=== PATIENT | female | born 1955 | race Caucasian/White ===

== ENCOUNTER → 2020-06-12 12:17 | Outpatient (CLI) | payer MEDICARE, SELFPAY ==
--- NOTE | 2020-06-12 12:22 | DI.MG.S_ITS ---
BILATERAL DIGITAL SCREENING MAMMOGRAM 3D/2D WITH CAD: 06/12/2020 CLINICAL: Routine screening. Comparison is made to exams dated: 04/25/2002 mammogram and 10/28/1999 mammogram - [facility]. The tissue of both breasts is predominantly fatty. Current study was also evaluated with a Computer Aided Detection (CAD) system. No significant masses, calcifications, or other findings are seen in either breast. There has been no significant interval change. IMPRESSION: NEGATIVE There is no mammographic evidence of malignancy. A 1 year screening mammogram is recommended. This exam was interpreted at Station ID: [id number]. NOTE: For mammograms, a report in lay terms will be sent to the patient. Approximately 15% of breast malignancies will not be visualized mammographically. In the management of a palpable breast mass, a negative mammogram must not discourage biopsy of a clinically suspicious lesion. Electronically Signed By: Fransisco moreno/emmy:06/12/2020 13:48:09 letter sent: Normal Exam ACR BI-RADS Category 1: Negative 3341F
[2020-06-12 12:55] LABS: Add Manual Diff / Slide Review NO; Basophils Absolute Auto 0 /uL (0-100); Basophils Percent Auto 0.4 % (0-2); Eosinophils Absolute Auto 400 /uL (0-450); Eosinophils Percent Auto 5.1 % (2-4); Hematocrit 46.1 % (36-46); Hemoglobin 15.7 g/dL (12.0-16.0); Lymphocytes Absolute Auto 1700 /uL (1100-4500); Lymphocytes Percent Auto 24.3 % (25-40); Mean Corpuscular HGB Conc 34.2 % (30-36); Mean Corpuscular Hemoglobin 30.8 PG (26-34); Mean Corpuscular Volume 90.1 fL (80-100); Monocytes Absolute Auto 300 /uL (0-900); Monocytes Percent Auto 4.8 % (3-14); Neutrophils Absolute Auto 4700 /uL (1500-7000); Neutrophils Percent Auto 65.4 % (50-75); Platelet Count 187 X10^3/uL (150-400); Red Blood Cell Count 5.11 X10^6/uL (4.0-5.2); Red Cell Distribution Width 14.3 % (11.6-14.8); White Blood Cell Count 7.1 X10^3/uL (4.5-11.0)
[2020-06-12 13:42] LABS: Alanine Aminotransferase 72 IU/L (<35); Albumin 4.5 g/dL (3.5-5.0); Albumin Globulin Ratio 1.4 (1.0-2.8); Alkaline Phosphatase 130 U/L (38-126); Aspartate Aminotransferase 53 IU/L (14-36); BUN Creatinine Ratio 20.8 (6-22); Bilirubin Total 0.5 mg/dL (0.2-1.3); Blood Urea Nitrogen 15 mg/dL (7-17); Carbon Dioxide 27 mmol/L (22-32); Chloride 105 mmol/L (98-107); Cholesterol 304 mg/dL (140-199); Estimated Glomerular Filt Rate > 60.0 mL/min (>60); Globulin 3.3 g/dL (1.7-4.1); Glucose 132 mg/dL (80-110); HDL Cholesterol 59 mg/dL (40-60); HEMOLYSIS < 15 (0-50); LDL Cholesterol Calculated 205 mg/dL (<100); Potassium 4.4 mmol/L (3.4-5.1); Sodium 139 mmol/L (137-145); Total Protein 7.8 g/dL (6.3-8.2); Triglycerides 202 mg/dL (35-150)
[2020-06-12 13:54] LABS: Free T3, Triiodothyronine Free 3.51 pg/mL (2.77-5.27); Free T4, Direct Thyroxine 0.96 ng/dL (0.78-2.19)
[2020-06-12 14:07] LABS: Thyroid Stimulating Hormone 2.71 uIU/mL (0.47-4.68)
[2020-06-12 14:38] LABS: Creatinine Urine Random 58.3 mg/dL
[2020-06-12 14:42] LABS: Microalbumin Urine Random < 0.6 mg/dL (0-1.6)
[2020-06-12 14:53] LABS: Hemoglobin A1C% w Est Avg Glu 4.9 % (4.0-6.0)
[2020-06-16 09:44] LABS: Fecal Immunochemical Test Negative (Negative)
== END ==
PROVIDERS: PCP Nurse Practitioner; Referring Provider Nurse Practitioner; Visit Provider Nurse Practitioner
DX: Z12.31 Encounter for screening mammogram for malignant neoplasm of breast (principal); M85.852 Other specified disorders of bone density and structure, left thigh; Z78.0 Asymptomatic menopausal state; R53.83 Other fatigue; R03.0 Elevated blood-pressure reading, without diagnosis of hypertension; Z13.6 Encounter for screening for cardiovascular disorders; Z13.1 Encounter for screening for diabetes mellitus; Z12.11 Encounter for screening for malignant neoplasm of colon; Z82.62 Family history of osteoporosis
CPT/HCPCS: 36415; 77063; 77067; 77080; 80053; 80061; 82043; 82274; 82570; 83036; 84439; 84443; 84481; 85025

== ENCOUNTER → 2022-04-26 11:14 | Outpatient (CLI) | payer MEDICARE, SELFPAY ==
[2022-04-26 13:01] LABS: COVID19 -Nasal RAPID Negative (Negative)
== END ==
PROVIDERS: PCP Nurse Practitioner; Visit Provider Surgery
DX: Z01.812 Encounter for preprocedural laboratory examination (principal); Z20.822 Contact with and (suspected) exposure to COVID-19
CPT/HCPCS: 87635; C9803

== ENCOUNTER 2022-04-27 12:17 | Day surgery (SDC) | payer MEDICARE, SELFPAY ==
--- NOTE | 2022-04-27 | PATH_ITS ---
[facility] Accession Number: [id number] . 01 Material submitted: . colon - RANDOM COLON BIOPSIES . 01 Diagnosis: Random Colon, Biopsies: Mild active colitis with crypt architectural distortion; please see comment. Negative for granulomas, dysplasia or malignancy. MRV 04/29/2022 1326 Local . 01 Comment: The histologic findings would support a clinical impression of idiopathic inflammatory bowel disease, particularly if other etiologies such as infection or drug/toxin-induced injury are excluded. . 01 Electronically signed: . Yony Cherry MD, PhD, Pathologist NPI- [id number] . 01 Gross description: . RANDOM COLON BIOPSIES: Received in formalin are 3 fragment(s) of lambert, soft tissue measuring 0.2 x 0.2 x 0.2 cm to 0.5 x 0.3 x 0.3 cm submitted entirely in 1 cassette(s) /AMERICO 04/28/2022 1916 Local . 01 Pathologist provided ICD-10: R19.7, K52.9 . 01 CPT . 832776 Specimen Comment: A courtesy copy of this report has been sent to [phone] Performed at: 01 [facility] [address] [place] [address], [place], [place] [id number] MD Aba Dyson MD Phone: [phone]
[2022-04-27] MEDS: LACTATED RINGERS 1,000 ML 200 ML IV (13:09)
[2022-04-27 13:14] VITALS: BP 151/96; PULSE 102; RESP 20; TEMP 36.3; O2SAT 93; BMI 38.2
--- NOTE | 2022-04-27 14:07 | PM.HP.1 ---
History of Present Illness History of Present Illness Date Patient Seen: 04/27/22 Time Patient Seen: 14:07 Chief complaint: DX COLONOSCOPY Narrative: The patient presents for diagnostic colonoscopy secondary to bloody diarrhea. For the past several months having intermittent bloody diarrhea which she describes as clot containing.. No personal or family history of colon cancer. Had a previously normal colonoscopy she thinks between 5 and 10 years ago. No personal or first-degree family history of colon cancer. Patient History Medical History Allergies (~1954) Ankle pain (~1969) Asthma (~1954) Chicken pox (~1964) Elevated blood pressure reading Fatigue Measles (~1962) Mumps (~1960) Obesity, Class III, BMI 40-49.9 (morbid obesity) Osteoarthritis (~1989) Plantar warts Rubella (~1963) Screening for cardiovascular condition Screening for diabetes mellitus Viral wart on finger Surgical History Anesthesia History of section History of hip replacement (~2004) History of thumb surgery LAP-BAND surgery status (~2003) Family & Social History Family History Father History of heart disease Dissecting AAA (abdominal aortic aneurysm) Mother Diabetes mellitus Hypertension Stroke Brother History of heart disease History of heart attack Grandfather History of heart disease Grandmother Parkinson's disease Grandfather History of heart disease Grandmother Stroke Son Accident Social History: household members spouse Tobacco & Substance use: Smoking Status Never smoker alcohol intake current alcohol intake frequency a few times a month Substance Use Type does not use Meds Home Medications and Allergies Home Medications Medication Instructions Recorded Confirmed Type clobetasol 0.05 % topical ointment 1 applictn topical QAM AND QPM 14 04/23/20 04/27/22 Rx days #60 grams sodium,potassium,mag sulfates 17.5 See Rx Instructions PO .COMPLEX 04/23/22 04/27/22 Rx gram-3.13 gram-1.6 gram oral soln #354 mL (Suprep Bowel Prep Kit) Allergies Allergy/AdvReac Type Severity Reaction Status Date / Time SULFA (sulfonamide) Allergy Unknown RASH/H.A./D Uncoded 04/27/22 13:30 YSPNEA Sulfites Allergy Unknown MIGRAINES Uncoded 04/27/22 13:30 Exam Vital Signs (past 8 hours): - 04/27/22 13:14 Temperature 97.3 F L Pulse Rate 102 H Respiratory Rate 20 Blood Pressure 151/96 H Pulse Oximetry 93 Oxygen Delivery Method Room Air Oxygen Delivery Method Room Air Narrative Exam Narrative: General adult woman alert oriented no acute distress Abdomen soft nontender nondistended Assessment & Plan Assessment and plan (1) Bloody diarrhea: Status: Acute Assessment & Plan narrative: 66-year-old woman with intermittent bloody diarrhea here for diagnostic colonoscopy. Technical details were discussed. Risks, benefits, alternatives explained. Risks including but not limited to myocardial infarction, aspiration, bleeding, pain, missed lesion, incomplete examination, need for further radiographic studies, colonic perforation, and need for major abdominal surgery were discussed. All questions were answered to their satisfaction, and they are in agreement with this plan. Time Spent With Patient Critical Care time: I spent a total of [] minutes of critical care time on this patient's care today; this time is exclusive of procedural time.
--- NOTE | 2022-04-27 14:10 | PM.OP.COLON ---
Operative Date/Time/Diagnoses Date of procedure: 04/27/22 Time of procedure: 14:10 Pre-op diagnosis: Bloody diarrhea Post-op diagnosis: same Procedure & Clinicians Study performed: Colonoscopy Same procedure as scheduled: Yes Indications: Bloody diarrhea Surgeon: Niko Sanchez Procedure Notes Procedure in detail: The history and physical was performed/updated and the patient is ASA class is 3. The procedure was discussed in detail with the patient. Potential risks complications including infection, bleeding, missed diagnosis, perforation, need for surgery, and were explained. Their questions were answered and informed consent was obtained. Patient was brought to the procedure room and placed standard monitoring equipment. The patient's vital signs were monitored continuously throughout the entire procedure. Prior to starting time-out was performed. The patient was placed in the left lateral recumbent position. Procedural sedation was administered by anesthesia. Examination began with a thorough inspection of the perianal area there was no evidence of fissures, fistulae, external hemorrhoids or cutaneous malignancy. The colonoscopy scope was then placed into the anal canal and was advanced to the cecum, which was identified by the ileocecal valve, the appendiceal orifice and the confluence of the taenia. The scope was then slowly withdrawn examining colon thoroughly in all directions, irrigating it of any residual stool. FINDINGS 1. No masses or polyps. 2. Noncontinuous patches of colitis with sloughing mucosa. More prominent in distal colon and proximal. Multiple random biopsies of colon were taken. The patient tolerated the procedure well. They will be discharged once criteria are met. The prep was of good/excellent quality. The withdrawl time was 7 minutes. Findings: colitis Specimen(s): other (Random colonic biopsies) Complications: none Impression: Colitis Post-procedure Recommendations: Will call with biopsy results Disposition: same day surgery
[2022-04-27 14:35] VITALS: BP 93/55; PULSE 66; RESP 13; TEMP 37.1; O2SAT 96
[2022-04-27 14:39] VITALS: BP 97/70; PULSE 69; RESP 13; O2SAT 98
[2022-04-27 14:44] VITALS: BP 136/79; PULSE 70; RESP 18; O2SAT 99
[2022-04-27 14:49] VITALS: BP 131/81; PULSE 72; RESP 17; O2SAT 98
[2022-04-27 14:50] VITALS: BP 141/88; PULSE 70; RESP 12; TEMP 36.3; O2SAT 98
== END 2022-04-27 15:14 | disposition home or self-care (01) ==
PROVIDERS: PCP Nurse Practitioner; Referring Provider Surgery; Visit Provider Surgery
PROC: 0DJD8ZZ Inspection of Lower Intestinal Tract, Via Natural or Artificial Opening Endoscopic (ICD-10-PCS; CPT 45378; principal; 2022-04-27 14:00)
DX: K52.9 Noninfective gastroenteritis and colitis, unspecified (principal)
CPT/HCPCS: 45380; J2704; J3010

== ENCOUNTER → 2022-05-24 12:56 | Outpatient (CLI) | payer MEDICARE, SELFPAY ==
[2022-05-24 13:31] LABS: Add Manual Diff / Slide Review NO; Basophils Absolute Auto 0 /uL (0-100); Basophils Percent Auto 0.7 % (0-2); Eosinophils Absolute Auto 300 /uL (0-450); Eosinophils Percent Auto 4.8 % (2-4); Hematocrit 45.5 % (36-46); Hemoglobin 15.8 g/dL (12.0-16.0); Lymphocytes Absolute Auto 1900 /uL (1100-4500); Mean Corpuscular HGB Conc 34.6 % (30-36); Mean Corpuscular Hemoglobin 30.6 PG (26-34); Mean Corpuscular Volume 88.4 fL (80-100); Monocytes Absolute Auto 400 /uL (0-900); Monocytes Percent Auto 6.5 % (3-14); Neutrophils Absolute Auto 3800 /uL (1500-7000); Platelet Count 194 X10^3/uL (150-400); Red Blood Cell Count 5.15 X10^6/uL (4.0-5.2); Red Cell Distribution Width 14.2 % (11.6-14.8); White Blood Cell Count 6.5 X10^3/uL (4.5-11.0)
[2022-05-24 14:40] LABS: Free T3, Triiodothyronine Free 2.94 pg/mL (2.77-5.27); Free T4, Direct Thyroxine 1.01 ng/dL (0.78-2.19)
[2022-05-24 16:13] LABS: Alanine Aminotransferase 17 IU/L (<35); Albumin 4.2 g/dL (3.5-5.0); Albumin Globulin Ratio 1.2 (1.0-2.8); Alkaline Phosphatase 88 U/L (38-126); Aspartate Aminotransferase 24 IU/L (14-36); BUN Creatinine Ratio 13.9 (6-22); Bilirubin Total 0.7 mg/dL (0.2-1.3); Blood Urea Nitrogen 11 mg/dL (7-17); Calcium 9.3 mg/dL (8.4-10.2); Carbon Dioxide 24 mmol/L (22-32); Chloride 105 mmol/L (98-107); Estimated Glomerular Filt Rate > 60 mL/min (>60); Globulin 3.6 g/dL (1.7-4.1); Glucose 93 mg/dL (80-110); HEMOLYSIS < 15 (0-50); Sodium 139 mmol/L (137-145); Total Protein 7.8 g/dL (6.3-8.2)
[2022-05-24 16:51] LABS: Hep C Virus Ab w/Reflex Quant NEGATIVE s/c (NEGATIVE)
[2022-05-25 02:42] LABS: Cholesterol 256 mg/dL (140-199); HDL Cholesterol 27 mg/dL (40-60); LDL Cholesterol Calculated 179 mg/dL (<100); Triglycerides 251 mg/dL (35-150)
== END ==
PROVIDERS: PCP Nurse Practitioner; Referring Provider Nurse Practitioner; Visit Provider Nurse Practitioner
DX: R19.7 Diarrhea, unspecified (principal); E78.5 Hyperlipidemia, unspecified; K51.90 Ulcerative colitis, unspecified, without complications; R53.83 Other fatigue; Z11.59 Encounter for screening for other viral diseases
CPT/HCPCS: 36415; 80053; 80061; 84439; 84443; 84481; 85025; 86803

== ENCOUNTER → 2024-05-11 | Outpatient (CLI) | payer MEDICARE, SELFPAY ==
--- NOTE | 2024-05-11 13:30 | DI.MG.S_ITS ---
BILATERAL DIGITAL DIAGNOSTIC MAMMOGRAM 3D/2D: 05/11/2024 CLINICAL: Left breast lump. Comparison is made to exam dated: 06/12/2020 mammogram - . The breasts are almost entirely fatty (category a/<25% glandular tissue). There are a few scattered, stable, lucent centered calcifications in both breasts. No significant masses, calcifications, or other findings are seen in either breast. Specifically, no finding to correspond to the patient's palpable abnormality. IMPRESSION: INCOMPLETE: NEED ADDITIONAL IMAGING EVALUATION Bilateral mammograms are stable. There is no abnormality seen in the left breast to correspond with the palpable abnormality at 2 o'clock in the anterior depth. Ultrasound is recommended for full evaluation of this area. This was performed immediately following this exam. Based on the Tyrer Cuzick model (a risk assessment model) the patient's lifetime risk is 3.2% and her 10 year risk is 1.9%. According to the ACR, ACS, and NCCN guidelines, an annual breast MRI exam along with mammogram is recommended if the patient's lifetime risk is 20% or greater. This exam was interpreted at Station ID: [id number]. NOTE: For mammograms, a report in lay terms will be sent to the patient. Approximately 15% of breast malignancies will not be visualized mammographically. In the management of a palpable breast mass, a negative mammogram must not discourage biopsy of a clinically suspicious lesion. Electronically Signed By: Sarah rousseau/:05/11/2024 14:18:03 letter sent: Additional Imaging Needed ACR BI-RADS Category 0: Incomplete: Need Additional Imaging Evaluation
--- NOTE | 2024-05-11 13:30 | DI.US.S_ITS ---
LIMITED ULTRASOUND OF LEFT BREAST: 05/11/2024 CLINICAL: Palpable left breast lump. Comparison is made to exams dated: 05/11/2024 mammogram, 06/12/2020 mammogram, 04/25/2002 mammogram, and 10/28/1999 mammogram - [facility]. Real-time ultrasound of the left breast 1 o'clock region was performed. Walker scale images of the real-time examination were reviewed. No significant abnormalities were seen sonographically in the left breast. Specifically, no finding to correspond to the patient's palpable abnormality. IMPRESSION: NEGATIVE There is no sonographic correlate to the patient's palpable abnormality and no evidence of malignancy. Return to annual mammogram screening schedule is recommended. Findings and recommendations were conveyed to the patient at time of exam. This exam was interpreted at Station ID: [id number]. Electronically Signed By: Sarah rousseau/:05/11/2024 15:18:07 letter sent: Normal Exam ACR BI-RADS Category 1: Negative
== END ==
PROVIDERS: PCP Internal Medicine; Referring Provider Physician Assistant; Visit Provider Physician Assistant
DX: R92.2 Inconclusive mammogram (principal); N63.20 Unspecified lump in the left breast, unspecified quadrant; R92.313 Mammographic fatty tissue density, bilateral breasts
CPT/HCPCS: 76642; 77066; G0279

== ENCOUNTER → 2024-05-24 15:50 | Outpatient (CLI) | payer MEDICARE, SELFPAY ==
[2024-05-24 18:12] LABS: Hematocrit 46.7 % (36-46); Hemoglobin 16.1 g/dL (12.0-16.0); Mean Corpuscular HGB Conc 34.5 % (30-36); Mean Corpuscular Hemoglobin 31.2 PG (26-34); Mean Corpuscular Volume 90.5 fL (80-100); Platelet Count 235 X10^3/uL (150-400); Red Blood Cell Count 5.16 X10^6/uL (4.0-5.2); Red Cell Distribution Width 13.8 % (11.6-14.8); White Blood Cell Count 8.1 X10^3/uL (4.5-11.0)
[2024-05-24 18:16] LABS: Alanine Aminotransferase 19 IU/L (<35); Albumin 4.1 g/dL (3.5-5.0); Albumin Globulin Ratio 1.1 (1.0-2.8); Alkaline Phosphatase 93 U/L (38-126); Aspartate Aminotransferase 36 IU/L (14-36); BUN Creatinine Ratio 17.1 (6-22); Bilirubin Total 0.6 mg/dL (0.2-1.3); Blood Urea Nitrogen 13 mg/dL (7-17); Calcium 9.8 mg/dL (8.4-10.2); Carbon Dioxide 28 mmol/L (22-32); Chloride 104 mmol/L (98-107); Cholesterol 284 mg/dL (140-199); Estimated Glomerular Filt Rate > 60 mL/min (>60); Globulin 3.7 g/dL (1.7-4.1); Glucose 97 mg/dL (80-110); HDL Cholesterol 36 mg/dL (40-60); HEMOLYSIS < 15 (0-50); LDL Cholesterol Calculated 187 mg/dL (<100); Sodium 137 mmol/L (137-145); Total Protein 7.8 g/dL (6.3-8.2); Triglycerides 307 mg/dL (35-150)
[2024-05-24 18:42] LABS: TSH w/ Reflex to FT4 1.74 uIU/mL (0.47-4.68)
[2024-05-24 19:01] LABS: Vitamin B12 748 pg/mL (239-931)
== END ==
PROVIDERS: PCP Internal Medicine; Referring Provider Internal Medicine; Visit Provider Internal Medicine
DX: R03.0 Elevated blood-pressure reading, without diagnosis of hypertension (principal); E78.2 Mixed hyperlipidemia; Z98.84 Bariatric surgery status
CPT/HCPCS: 36415; 80053; 80061; 82607; 84443; 85027